=== PATIENT | male | born 1990 | race Caucasian/White ===

== ENCOUNTER 2017-12-16 03:04 | Emergency (ER) | payer BC, OTHER ==
[2017-12-16] VITALS (7 sets, daily range): BP systolic 86–107; BP diastolic 50–61; PULSE 76–91; RESP 18; TEMP 97.4–97.6; O2SAT 96–98
[~2017-12-16] VITALS: Ht 188 cm; Wt 86.0 kg
[2017-12-16] MEDS ORDERED: SODIUM CHLOR 0.9% 1000 ML INJ 1,000 ML IV SCH (03:51)
--- NOTE | 2017-12-16 03:58 | PD ---
HPI Chief Complaint: GI Complaint Time Seen by Provider: 03:51 Travel History International Travel<30 days: No Contact w/Intl Traveler<30days: No Traveled to known affect area: No History of Present Illness HPI 27-year-old male presents to the emergency department for complaint of severe left lower quadrant abdominal pain 3 hours. Patient states he has been in good health. Patient states he had no complaints on Thursday but on Thursday morning had a set of nausea with 2 episodes of diarrhea and then was asymptomatic until 3 hours ago he was awakened from sleep with severe left lower quadrant abdominal pain. Patient states he has not been able to find position of comfort. No flank pain. No dysuria frequency urgency or hematuria. Patient states he has not had urine output 6 hours. Patient denies any hematemesis coffee-ground emesis melena hematochezia. Patient denies any previous abdominal surgery. Patient denies any injury or fall. Patient's had no dietary indiscretion well water ingestion or foreign travel. Patient has had one previous surgery septoplasty for VSD as an . Patient' s had no chest pain no shortness of breath. Patient has had dizziness but no syncope or near syncope. No diaphoresis. No shortness of breath. Patient admits to alcohol use and reports that he did drink alcoholic beverage last evening before going to bed. Pain is rated as 10 over 10 in intensity. [facility] Past Medical History Narrative Medical ADHD septoplasty VSD alcohol use ADHD: Yes Cardiovascular Problems: Yes (VSD) Diminished Hearing: No Immunizations Current: Yes Influenza Vaccination: No Past Surgical History Other Surgery: Yes (SEPTOPLASTY 2007) Social History Alcohol Use: Yes (COUPLE OF BEERS A DAY) Tobacco Use: Yes (1 PPD) Substance Use: No Allergies-Medications (Allergen,Severity, Reaction): Coded Allergies: No Known Allergies (Verified Allergy, Unknown, 12/16/17) Reported Meds & Prescriptions Reported Meds & Active Scripts Active No Active Prescriptions or Reported Medications Review of Systems Except as stated in HPI: all other systems reviewed are Neg General / Constitutional: No: Fever, Chills HENT: No: Sore Throat, Congestion Cardiovascular: No: Chest Pain or Discomfort Respiratory: No: Shortness of Breath Gastrointestinal: Positive: Nausea, Vomiting (x2), Abdominal Pain (LLQ), No: Hematemesis, Hematochezia, Loss of Appetite Genitourinary: No: Urgency, Frequency, Dysuria, Hematuria, Flank Pain Musculoskeletal: No: Myalgias, Arthralgias Skin: No Rash Neurologic: No: Weakness Psychiatric: No: Anxiety Endocrine: No: Heat Intolerance Hematologic/Lymphatic: No: Easy Bruising Physical Exam Narrative GENERAL: Well-developed well-nourished male in no acute distress no respiratory distress SKIN: Warm and dry. HEAD: Normocephalic. EYES: No scleral icterus. No injection or drainage. NECK: Supple, trachea midline. No JVD or lymphadenopathy. CARDIOVASCULAR: Regular rate and rhythm without murmurs, gallops, or rubs. RESPIRATORY: Breath sounds equal bilaterally. No accessory muscle use. GASTROINTESTINAL: Abdomen soft, left lower quadrant and suprapubic tenderness to direct palpation without guarding or rebound, nondistended. Abdomen is soft nonrigid. MUSCULOSKELETAL: No cyanosis, or edema. BACK: Nontender without obvious deformity. No CVA tenderness. Data Data Last Documented VS Vital Signs Date Time Temp Pulse Resp B/P (MAP) Pulse Ox O2 Delivery O2 Flow Rate FiO2 12/16/17 04:47 76 18 107/60 (76) 97 Room Air 12/16/17 03:18 97.6 Orders Orders Complete Blood Count With Diff (12/16/17 03:51) Comprehensive Metabolic Panel (12/16/17 03:51) Lipase (12/16/17 03:51) Lactic Acid (12/16/17 03:51) Prothrombin Time / Inr (Pt) (12/16/17 03:51) Act Partial Throm Time (Ptt) (12/16/17 03:51) Urinalysis - C+S If Indicated (12/16/17 03:51) Ct Abd/Pel W Iv Contrast(Rout) (12/16/17 03:51) Iv Access Insert/Monitor (12/16/17 03:51) Ecg Monitoring (12/16/17 03:51) Oximetry (12/16/17 03:51) Ondansetron Inj (Zofran Inj) (12/16/17 04:00) Sodium Chlor 0.9% 1000 Ml Inj (Ns 1000 M (12/16/17 03:51) Sodium Chloride 0.9% Flush (Ns Flush) (12/16/17 04:00) Electrocardiogram (12/16/17 03:51) Chest, Single Ap (12/16/17 03:51) Piperacil-Tazo 3.375 Gm Premix (Zosyn 3. (12/16/17 04:00) Type And Screen (12/16/17 03:51) Sodium Chlor 0.9% 1000 Ml Inj (Ns 1000 M (12/16/17 04:00) Blood Culture (12/16/17 03:51) Iohexol 350 Inj (Omnipaque 350 Inj) (12/16/17 05:17) Ketorolac Inj (Toradol Inj) (12/16/17 06:00) Labs Laboratory Tests Test 12/16/17 03:30 12/16/17 04:10 12/16/17 04:30 White Blood Count 9.0 TH/MM3 Red Blood Count 5.04 MIL/MM3 Hemoglobin 14.8 GM/DL Hematocrit 44.8 % Mean Corpuscular Volume 88.9 FL Mean Corpuscular Hemoglobin 29.4 PG Mean Corpuscular Hemoglobin Concent 33.1 % Red Cell Distribution Width 12.7 % Platelet Count 340 TH/MM3 Mean Platelet Volume 8.4 FL Neutrophils (%) (Auto) 52.2 % Lymphocytes (%) (Auto) 38.3 % Monocytes (%) (Auto) 6.8 % Eosinophils (%) (Auto) 2.2 % Basophils (%) (Auto) 0.5 % Neutrophils # (Auto) 4.8 TH/MM3 Lymphocytes # (Auto) 3.4 TH/MM3 Monocytes # (Auto) 0.6 TH/MM3 Eosinophils # (Auto) 0.2 TH/MM3 Basophils # (Auto) 0.0 TH/MM3 CBC Comment DIFF FINAL Differential Comment Prothrombin Time 10.7 SEC Prothromb Time International Ratio 1.1 RATIO Activated Partial Thromboplast Time 25.4 SEC Blood Urea Nitrogen 10 MG/DL Creatinine 0.82 MG/DL Random Glucose 102 MG/DL Total Protein 7.6 GM/DL Albumin 4.0 GM/DL Calcium Level 8.6 MG/DL Alkaline Phosphatase 52 U/L Aspartate Amino Transf (AST/SGOT) 14 U/L Alanine Aminotransferase (ALT/SGPT) 21 U/L Total Bilirubin 0.3 MG/DL Sodium Level 141 MEQ/L Potassium Level 3.9 MEQ/L Chloride Level 107 MEQ/L Carbon Dioxide Level 27.2 MEQ/L Anion Gap 7 MEQ/L Estimat Glomerular Filtration Rate 112 ML/MIN Lipase 121 U/L Lactic Acid Level 1.4 mmol/L Urine Color YELLOW Urine Turbidity SLIGHT Urine pH 6.0 Urine Specific [place] 1.025 Urine Protein NEG mg/dL Urine Glucose (UA) NEG mg/dL Urine Ketones NEG mg/dL Urine Occult Blood LARGE Urine Nitrite NEG Urine Bilirubin NEG Urine Leukocyte Esterase NEG Urine RBC 20-24 /hpf Urine WBC 0-2 /hpf Urine Squamous Epithelial Cells 0-5 /hpf Urine Mucus MOD /lpf Microscopic Urinalysis Comment CULT NOT INDICATED MDM Medical Decision Making Medical Screen Exam Complete: Yes Emergency Medical Condition: Yes Medical Record Reviewed: Yes Interpretation(s) Last Impressions Chest X-Ray 12/16/17350 Signed Impressions: Service Date/Time: Saturday, December 16, 2017 04:11 - CONCLUSION: No acute disease. Lucho Edmondson MD Abdomen/Pelvis CT 12/16/17350 Signed Impressions: Service Date/Time: Saturday, December 16, 2017 05:07 - CONCLUSION: Tiny 2 mm calculus at left ureterovesical junction without associated hydronephrosis or significant obstructive uropathy on CT. Remainder of exam unremarkable. Lucho Edmondson MD CBC & BMP Diagram 12/16/17 03:30 Total Protein 7.6, Albumin 4.0, Calcium Level 8.6, Alkaline Phosphatase 52, Aspartate Amino Transf (AST/SGOT) 14 L, Alanine Aminotransferase (ALT/SGPT) 21, Total Bilirubin 0.3 Vital Signs Date Time Temp Pulse Resp B/P (MAP) Pulse Ox O2 Delivery O2 Flow Rate FiO2 12/16/17 04:47 76 18 107/60 (76) 97 Room Air 12/16/17 03:25 18 12/16/17 03:20 18 98 Room Air 12/16/17 03:18 79 18 106/53 (70) 98 Room Air 12/16/17 03:18 97.6 79 18 106/53 (70) 98 Room Air 12/16/17 03:11 97.4 91 18 86/50 (62) 96 EKG sinus rhythm rate 70 to early repolarization changes no acute injury pattern change Urinalysis red blood cells no culture indicated Differential Diagnosis Abdominal pain, viscus perforation, atypical appendicitis, UTI, colitis, diverticulitis, renal colic, vasovagal near syncope Narrative Course IV access obtained specimens collected and sent for resulting patient administered Zosyn, Zofran and 2 L normal saline Patient sent for imaging CT with IV contrast EKG sinus rhythm with early repolarization changes no injury pattern CT consistent with 2 mm distal UVJ stone on the left without hydronephrosis or hydroureter otherwise imaging study is negative for acute process per reading radiologist this information is shared with the patient. Patient states now that he has returned from CAT scan his pain has markedly improved although still a mild dull ache therefore Toradol 30 mg IV administered vital signs have normalized Patient is stable for outpatient management and follow-up with urology Diagnosis Primary Impression: Calcium ureterolithiasis Additional Impression: Renal colic on left side Referrals: Urologist call for appointment C Architect urologist: Dr Sawyer Patient Instructions: General Instructions Departure Forms: Tests/Procedures, Work Release Special Instructions: no work x 1 day Additional Instructions: Increase fluid hydration Follow-up with urologist Strain urine Take medications as prescribed No work times one day Return to the emergency department for any concerns or change in condition Take acetaminophen/Tylenol every 4 hours as needed for fever 100.4F or greater Take ibuprofen/Motrin/Advil 800 mg as often as every 8 hours for pain associated with inflammation or for fever 100.4F or greater Med/Other Pt SpecificInfo: Prescription(s) given Scripts Oxycodone-Acetaminophen (Percocet) 5-325 mg Tab 1 TAB PO Q6H Y for PAIN, #10 TAB 0 Refills Prov: Homa Anderson MD 12/16/17 Ondansetron Odt (Zofran Odt) 4 Mg Tab 4 MG SL Q6HR Y for Nausea/Vomiting, #10 TAB 0 Refills Prov: Homa Anderson MD 12/16/17 Tamsulosin (Flomax) 0.4 Mg Cap 0.4 MG PO HS for Manage Prostate Problems, #7 CAP 0 Refills Prov: Homa Anderson MD 12/16/17 Ibuprofen (Ibuprofen) 800 Mg Tab 800 MG PO Q8H Y for PAIN GREATER THAN 5, #15 TAB 0 Refills Prov: Homa Anderson MD 12/16/17 Disposition: 01 DISCHARGE HOME Condition: Stable Homa Anderson MD Dec 16, 2017 03:58
[2017-12-16] MEDS ORDERED: SODIUM CHLORIDE 0.9% FLUSH 10 ML FLUSH IV FLUSH PRN (04:00)
[2017-12-16] MEDS ORDERED: ONDANSETRON HCL 4 MG/2 ML VIAL IVP ONE (04:00)
[2017-12-16] MEDS ORDERED: SODIUM CHLOR 0.9% 1000 ML INJ 1,000 ML IV ONE (04:00)
[2017-12-16] MEDS ORDERED: PIPERACIL-TAZO 3.375 GM PREMIX 50 ML IV ONE (04:00)
[2017-12-16 04:27] LABS: AUTOMATED NEUTROPHIL # 4.8 TH/MM3 (1.8-7.7); BASOPHIL % 0.5 % (0.0-2.0); EOSINOPHIL # 0.2 TH/MM3 (0-0.4); EOSINOPHIL % 2.2 % (0.0-4.0); HEMATOCRIT 44.8 % (39.0-51.0); HEMOGLOBIN 14.8 GM/DL (13.0-17.0); LYMPH % 38.3 % (9.0-44.0); LYMPHOCYTE # 3.4 TH/MM3 (1.0-4.8); MEAN CELL VOLUME 88.9 FL (80.0-100.0); MEAN CORPUSCULAR HEMOGLOBIN 29.4 PG (27.0-34.0); MEAN CORPUSCULAR HGB CONC 33.1 % (32.0-36.0); MEAN PLATELET VOLUME 8.4 FL (7.0-11.0); MONO % 6.8 % (0.0-8.0); MONOCYTE # 0.6 TH/MM3 (0-0.9); NEUT % 52.2 % (16.0-70.0); PLATELET COUNT 340 TH/MM3 (150-450); RED BLOOD COUNT 5.04 MIL/MM3 (4.50-5.90); RED CELL DISTRIBUTION WIDTH 12.7 % (11.6-17.2)
--- NOTE | 2017-12-16 04:32 | RADRPT ---
EXAM DATE/TIME: 12/16/2017 04:11 [facility] COMPARISON: CHEST SINGLE AP, April 11, 2016, 12:07. INDICATIONS : Chest and abdominal pain. MEDICAL HISTORY : None. SURGICAL HISTORY : None. ENCOUNTER: Initial ACUITY: 1 day PAIN SCORE: 8/10 LOCATION: Bilateral lower chest FINDINGS: A single view of the chest demonstrates the lungs to be symmetrically aerated without evidence of mas s, infiltrate or effusion. The cardiomediastinal contours are unremarkable. Osseous structures are intact. CONCLUSION: No acute disease. Lucho Edmondson MD on December 16, 2017 at 4:30 Board Certified Radiologist. This report was verified electronically.
[2017-12-16 04:40] LABS: CHLORIDE 107 MEQ/L (98-107); SODIUM (NA) 141 MEQ/L (136-145)
[2017-12-16 04:43] LABS: BICARBONATE 27.2 MEQ/L (21.0-32.0); CALCIUM 8.6 MG/DL (8.5-10.1)
[2017-12-16 04:44] LABS: BLOOD UREA NITROGEN 10 MG/DL (7-18); GLUCOSE,RANDOM 102 MG/DL (74-106); INTERNATIONAL NORMALIZED RATIO 1.1 RATIO; PROTHROMBIN TIME - PATIENT 10.7 SEC (9.8-11.6)
[2017-12-16 04:46] LABS: ALT (GPT) 21 U/L (12-78); AST (GOT) 14 U/L (15-37); CREATININE 0.82 MG/DL (0.60-1.30); GLOMERULAR FILTRATION RATE 112 ML/MIN (>89)
[2017-12-16 04:48] LABS: TOTAL BILIRUBIN ADULT 0.3 MG/DL (0.2-1.0); TOTAL PROTEIN 7.6 GM/DL (6.4-8.2)
[2017-12-16 04:49] LABS: ALKALINE PHOSPHATASE 52 U/L (45-117)
[2017-12-16 05:13] LABS: BILIRUBIN, URINE NEG (NEG); BLOOD, URINE LARGE (NEG); GLUCOSE,URINE NEG (NEG); KETONE, URINE NEG (NEG); NITRITE,URINE NEG (NEG); URINE LEUKOCYTE ESTERASE NEG (NEG)
[2017-12-16] MEDS ORDERED: IOHEXOL 350 MG/ML 10 ML VIAL (for RAD DIAG) IVCONTRAST ONE (05:17)
[2017-12-16 05:24] LABS: MUCUS URINE MOD /lpf (OCC); SQUAMOUS EPITHELIAL CELL URINE 0-5 /hpf (0-5); URINE COLOR YELLOW (YELLW/STRAW)
[2017-12-16 05:25] LABS: WBC, URINE 0-2 /hpf (0-5)
--- NOTE | 2017-12-16 05:43 | RADRPT ---
EXAM DATE/TIME: 12/16/2017 05:07 [facility] COMPARISON: No previous studies available for comparison. INDICATIONS : Left lower quadrant pain. IV CONTRAST: 100 cc Omnipaque 350 (iohexol) IV ORAL CONTRAST: No oral contrast ingested. RADIATION DOSE: 10.51 CTDIvol (mGy) MEDICAL HISTORY : None SURGICAL HISTORY : None. ENCOUNTER: Initial ACUITY: 1 day PAIN SCALE: 10/10 LOCATION: Left lower quadrant TECHNIQUE: Volumetric scanning of the abdomen and pelvis was performed. Using automated exposure control and ad justment of the mA and/or kV according to patient size, radiation dose was kept as low as reasonably achievable to obtain optimal diagnostic quality images. DICOM format image data is available electro nically for review and comparison. FINDINGS: Lung bases are clear. There is a tiny 2 mm calculus at the left ureterovesical junction but without significant left-sided hydronephrosis or ureteral dilatation. No acute findings in the liver, spleen, adrenals, right kidney or pancreas. No free fluid. No bowel obstruction. No adenopathy. No acute bony abnormality. CONCLUSION: Tiny 2 mm calculus at left ureterovesical junction without associated hydronephrosis or significant o bstructive uropathy on CT. Remainder of exam unremarkable. Lucho Edmondson MD on December 16, 2017 at 5:34 Board Certified Radiologist. This report was verified electronically.
[2017-12-16] MEDS ORDERED: KETOROLAC TROMETHAMINE 30 MG/ML (IVP) VIAL IV PUSH ONE (06:00)
[2017-12-16] MEDS ORDERED: PERC5TAB12 PO (06:03)
[2017-12-16] MEDS ORDERED: IBUP1TAB7 PO (06:03)
[2017-12-16] MEDS ORDERED: TAMS5CAP PO (06:03)
[2017-12-16] MEDS ORDERED: ZOFR4TAB3 SL (06:03)
--- NOTE | 2017-12-16 09:48 | EKG ---
Date Performed: 12/16/2017 Time Performed: 03:59:23 PTAGE: 27 years EKG: Sinus rhythm WITH SINUS ARRHYTHMIA ST ELEVATION, PROBABLY EARLY REPOLARIZATION BORDERLINE ECG Since the prior tra cing, there has been no significant change PREVIOUS TRACING : 04/11/2016 11.49 DOCTOR: Bora Herrera Interpretating Date/Time 12/16/2017 09:45:52
== END 2017-12-16 06:44 | disposition home or self-care (01) ==
LOC: PHED 03:04
DX: N20.1 Calculus of ureter (principal); R42 Dizziness and giddiness; F17.200 Nicotine dependence, unspecified, uncomplicated
CPT/HCPCS: 71045; 74177; 80053; 81001; 83605; 83690; 85025; 85610; 85730; 86850; 86900; 86901; 87040; 93005; 96365; 96375; 99285; J1885; J2405; J2543; J7030; Q9967